=== PATIENT | female | born 1975 | race Caucasian/White ===

== ENCOUNTER 2018-05-01 22:18 | Emergency (ER) | payer OTHER ==
[2018-05-01 22:31] VITALS: RESP 19
[2018-05-01] MEDS ORDERED: LIDOCAINE 1% INJ 10MG/ML (20 ML MDV) SQ STA (23:25)
--- NOTE | 2018-05-01 23:45 | ED ---
Skin/Abscess/FB HPI - General Chief complaint: Skin/Abscess/Foreign Body Stated complaint: needs boil looked at Time Seen by Provider: 05/01/18 22:45 Source: patient, RN notes reviewed, old records reviewed Mode of arrival: ambulatory Limitations: no limitations - History of Present Illness Initial comments: Janeth is a 43-year-old female, presents emergency department today with a right labial abscess. She reports she's had the symptoms for the past day. Patient states she did try to squeeze the area and a small amount of pus was removed. He is here with her fiance who also has concern for an abscess and boil. She reports that she's had no recent antibiotics. She denies any fevers or chills. She denies dysuria. She also questions if she could possibly be . She states that she started bleeding today. - Related Data Home Medications Medication Instructions Recorded Confirmed Dextroamphetamine/Amphetamine 10 mg PO DAILY 05/01/18 05/01/18 [Adderall] HYDROcodone/APAP 10-325MG [[place] 1 tab PO QID 05/01/18 05/01/18 10-325] Pantoprazole Sodium [Protonix] 40 mg PO DAILY 05/01/18 05/01/18 Aiw-Rsyj-Hmguy Acid 1 cap PO DAILY 05/01/18 05/01/18 [-U Capsule (formulary)] Previous Rx's Medication Instructions Recorded Sulfamethox-Tmp 800-160Mg [Bactrim 2 tab PO Q12HR #40 tab 05/02/18 DS 800-160 mg] Allergies Allergy/AdvReac Type Severity Reaction Status Date / Time No Known Allergies Allergy Verified 05/01/18 22:55 Review of Systems ROS Statement: Those systems with pertinent positive or pertinent negative responses have been documented in the HPI. ROS Other: All systems not noted in ROS Statement are negative. Past Medical History Past Medical History: Fibromyalgia, Hyperlipidemia Additional Past Medical History / Comment(s): varicose verins; back pain History of Any Multi-Drug Resistant Organisms: None Reported Additional Past Surgical History / Comment(s): D&C, vein removal; EGD Past Psychological History: No Psychological Hx Reported Smoking Status: Never smoker Past Alcohol Use History: Occasional Past Drug Use History: None Reported General Exam - General Exam Comments Initial Comments: This is a 43-year-old female. Alert and oriented. Patient appears in no acute distress. General: Well appearing, well nourished, in no distress. Oriented x 3, normal mood and affect . Ambulating without difficulty. Skin: Good turgor, no rash, unusual bruising or prominent lesions Hair: Normal texture and distribution. HEENT: Head: Normocephalic, atraumatic, no visible or palpable masses, depressions, or scaring. Eyes: Visual acuity intact, conjunctiva clear, sclera non-icteric, EOM intact, PERRL. Ears: EACs clear, TMs translucent & cone of light visualized. hearing intact. Heart: No cardiomegaly or thrills; regular rate and rhythm, no murmur or gallop Lungs: Clear to auscultation and percussion Abdomen: Bowel sounds normal, no tenderness, organomegaly, masses, or hernia Back: Spine normal without deformity or tenderness, no CVA tenderness Rectal: Normal sphincter tone, no hemorrhoids or masses palpable Extremities: No amputations or deformities, cyanosis, edema or varicosities, peripheral pulses intact Musculoskeletal: Normal gait and station. No misalignment, asymmetry, crepitation, defects, tenderness, masses, effusions, decreased range of motion, instability, atrophy or abnormal strength or tone in the head, neck, spine, ribs , pelvis or extremities. Neurologic: CN 2-12 normal. Sensation to pain, touch, and proprioception normal. DTRs normal in upper and lower extremities. No pathologic reflexes. Psychiatric: Oriented X3, intact recent and remote memory, judgment and insight , normal mood and affect. Pelvic: Patient has a labial abscess measuring 4 cm, right sided erythema noted. Breast: No nipple abnormality, dominant masses, tenderness to palpation, axillary or supraclavicular adenopathy. Limitations: no limitations Course Vital Signs 05/01/18 05/02/18 22:25 01:25 Temperature 98.0 F 98.1 F Pulse Rate 85 75 Respiratory 19 19 Rate Blood Pressure 136/90 133/78 O2 Sat by Pulse 100 100 Oximetry Procedures - Incision & Drainage Site: vulva/vagina (R labia majora) Size (cm): 2 Anesthetic Used: lidocaine 1% Amount (mLs): 3 I&D Cleaning Method: Chloroprep Scalpel Used: #11 I&D Drainage Obtained: Pus, Blood Packing: Iodoform Culture Obtained?: Yes Patient Tolerated Procedure: well Medical Decision Making - Medical Decision Making 43-year-old female presents emergency murmurs his labial abscess. I did complete incision and drainage and a culture was obtained. Likely concern for MRSA. Her fianc is here for similar abscess complaint. At this time Patient will be treated with Bactrim. I discussed warm compresses over the area. A small packing was placed. Discussed that that needs to be removed in 2 days. All questions answered return parameters were discussed. - Lab Data Lab Results 05/01/18 05/01/18 Range/Units 23:45 23:45 Urine Color Yellow Urine Appearance Cloudy H (Clear) Urine pH 6.0 (5.0-8.0) Ur Specific [place] 1.025 (1.001-1.035) Urine Protein Trace H (Negative) Urine Glucose (UA) Negative (Negative) Urine Ketones Negative (Negative) Urine Blood Moderate H (Negative) Urine Nitrite Negative (Negative) Urine Bilirubin Negative (Negative) Urine Urobilinogen 2.0 (<2.0) mg/dL Ur Leukocyte Esterase Small H (Negative) Urine RBC 21 H (0-5) /hpf Urine WBC 10 H (0-5) /hpf Ur Squamous Epith Cells 20 H (0-4) /hpf Urine Bacteria Rare H (None) /hpf Urine Mucus Occasional H (None) /hpf Urine HCG, Qual Not Detected (Not Detectd) Disposition Clinical Impression: Labial abscess Disposition: HOME SELF-CARE Condition: Good Instructions: Abscess (ED) Additional Instructions: Patient should follow-up with [facility] [facility]. Patient should take the medication as prescribed. Do warm sits baths, remove the packing in 2 days. Return to emergency department if any alarming signs or symptoms occur. Prescriptions: Sulfamethox-Tmp 800-160Mg [Bactrim DS 800-160 mg] 2 tab PO Q12HR #40 tab Is patient prescribed a controlled substance at d/c from ED?: No Referrals: Kleber Patel MD [Primary Care Provider] - 1-2 days Time of Disposition: 01:14
[2018-05-02 00:47] LABS: Appearance,Urine Cloudy (Clear); Bacteria,Urine Rare /hpf; Bilirubin,Urine Negative (Negative); Blood,Urine Moderate (Negative); Color,Urine Yellow; Glucose,Urine (UA) Negative (Negative); Ketones,Urine Negative (Negative); Leukocyte Esterase,Urine Small (Negative); Mucus,Urine Occasional /hpf; Nitrite,Urine Negative (Negative); Protein,Urine Trace (Negative); RBC,Urine 21 /hpf (0-5); Specific Gravity,Urine 1.025 (1.001-1.035); Squamous Epithelial Cell,Urine 20 /hpf (0-4); WBC,Urine 10 /hpf (0-5)
[2018-05-02] MEDS ORDERED: SULFAMETH-TMP DS STARTER PACK 2 TAB BTL PO STA (01:15)
[2018-05-02 01:40] VITALS: BP 133/78; PULSE 75; TEMP 98.1
== END 2018-05-02 01:25 | disposition home or self-care (01) ==
LOC: EC 22:18
DX: N76.4 Abscess of vulva (principal); Z79.899 Other long term (current) drug therapy
CPT/HCPCS: 81001; 81025; 87070; 87205; 87077; 87186; 99284; 56405; J2001